=== PATIENT | female | born 1990 | race African-American/Black ===

== ENCOUNTER 2020-10-09 06:15 | Inpatient (IN) | payer OTHER, SELFPAY ==
[2020-10-09] VITALS (78 sets, daily range): BP systolic 106–166; BP diastolic 39–111; PULSE 74–147; RESP 14; TEMP 36.3–36.8; O2SAT 95–100; BMI 35.7
--- NOTE | 2020-10-09 06:15 | LDADM ---
This patient, Gaby Palomares, was admitted to Labor/Delivery/Recovery 107 on 10/09/20 at 06:15. Plans for labor, pain management and were discussed with patient. Patient/family oriented to hospital policies and general routines including ID bracelet, bed and alarms, visiting hours, pain management, procedures, bathroom and other care routines, personal items, smoking policy, room service/diet and guest tray routines, infant security routines, and visiting hours. Patient/Family are encouraged to report perceived risks to care and to ask questions if they do not understand what they are told or what they should do. See OBIX for further documentation.
--- NOTE | 2020-10-09 07:10 | WPDANESEPP ---
Anes - Eval Pre Procedure Procedure: labor epidural Date/Time: 10/09/20 07:10 Surgeon: nico Pre Op Diagnosis: Induction of Labor Patient Data Age: 29 Gender: F Height: 1.61 m Weight: 93 kg Last Vital Signs Pulse 119 H 10/09/20 07:01 BP 123/87 10/09/20 07:01 Allergies Allergy/AdvReac Type Severity Reaction Status Date / Time No Known Allergies Allergy Verified 09/22/20 15:16 Home Medications Medication Instructions Recorded Confirmed Type PNV cmb#95-ferrous fumarate-FA 1 tablet PO DAILY 09/22/20 09/22/20 History [] ferrous sulfate [Iron (ferrous 325 mg PO DAILY 09/22/20 09/22/20 History sulfate)] Patient hx anesthesia problems: none Family hx anesthesia problems: none PMFSH Family History Family History (Updated 09/22/20 @ 15:13 by Ross Garcia RN) Mother Hypertension Social History Social History Smoking status: Never smoker Substance use: never Gender identity (if verbalized by the patient): Female Spiritual care concerns: No Exam Day of Procedure 10/09/20 07:10
[2020-10-09 07:20] LABS: Basophils Percent Auto 0.2 % (0.2-1.2); Eosinophils Percent Auto 0.6 % (0-4.4); Hematocrit 35.9 % (37.0-47.0); Hemoglobin 11.8 g/dL (12.0-15.0); Immature Granulocyte Absolute 0.01 K/mm3 (0.00-0.031); Immature Granulocyte Percent A 0.2 % (0-0.5); Lymphocytes Absolute Auto 1.92 K/mm3 (0.9-3.2); Lymphocytes Percent Auto 31.1 % (18.3-44.2); Mean Corpuscular HGB Conc 32.9 g/dl (32-36); Mean Corpuscular Hemoglobin 32.2 pg (26-34); Mean Corpuscular Volume 97.8 fl (80-100); Mean Platelet Volume 10.4 fl (7.4-10.4); Monocytes Absolute Auto 0.4 K/mm3 (0.1-0.6); Neutrophils Absolute Auto 3.8 K/mm3 (1.3-6.7); Neutrophils Percent Auto 60.9 % (45.5-73.1); Platelet Count Result 206 k/mm3 (150-375); Red Blood Count 3.67 M/mm3 (4.2-5.4); Red Cell Distribution Width 13.5 % (11.5-14.5); White Blood Count 6.2 K/mm3 (4.5-10.0)
[2020-10-09] MEDS: OXYTOCIN 30 UNITS/NS 500 ML 30 UNITS/500 ML BAG IV CONT (07:26)
[2020-10-09] MEDS: LACTATED RINGERS 1,000 ML 125 ML IV CONT ×2 (07:26→11:04)
[2020-10-09 07:31] LABS: Albumin Level 3.3 g/dL (3.5-5.1); Alkaline Phosphatase 171 U/L (38-126); Anion Gap 12 mmol/L (8-16); Aspartate Amino Transferase 24 U/L (14-36); Bilirubin,Total 0.6 mg/dL (0.2-1.3); Blood Urea Nitrogen 4 mg/dL (7-17); Carbon Dioxide 16 mmol/L (22-30); Chloride 108 mmol/L (98-107); Estimated CRCL calculation 150 ml/min; Estimated Glomerular Filt Rate > 60; Glucose 167 mg/dL (65-105); Potassium 3.4 mmol/L (3.4-5.0); Sodium 136 mmol/L (137-145); Uric Acid 4.5 mg/dL (2.5-7.5)
[2020-10-09 07:40] LABS: Alanine Aminotransferase 18 U/L (4-35)
--- NOTE | 2020-10-09 08:07 | WPDOBADMIT ---
Obstetrics - Admit Note Admission Note: 29 y/o here for induction of labor for CHTN. Upon initial exam pt was leaking a small amount of fluid. AROM of forebag. record reviewed. No pertinent additions to the history and/or any subsequent changes in the physical findings that are not consistent with the expected course of the were found. Additions to the history and/or subsequent changes in the physical findings follow. None.
[2020-10-09] MEDS: AMPICILLIN 2 GM/NS 100 ML 2 GM/100 ML BAG IVPB (08:27)
[2020-10-09 09:17] LABS: Rapid Plasma Reagin Non-Reactive (NonReactive)
[2020-10-09] MEDS: AMPICILLIN 1 GM/NS 50 ML 1 GM/50 ML BAG IVPB (13:00)
--- NOTE | 2020-10-09 15:57 | P.PCNOB_ITS ---
OB - Delivery Note Procedure Delivery date: 10/09/20 events: Induced HTN (Chronic hypertension) Intrapartal events: None Induction method: per pitocin protocol Delivery monitor: external FHT and external uterine Route of delivery: Laceration Description: Perineal - 2nd Degree Delivery repair: vicryl Quantitative Blood Loss (ml): 202 Anesthesia type: Epidural Narrative: Cord gasses collected and handed off to staff. Mother and baby in stable condition. [place] Baby Date of : 10/09/20 Time of : 15:37 Weeks of gestation at delivery: 38 Weight (pounds): 7 Weight (ounces): 7 presentation: vertex position: Left Occiput Anterior Placenta delivery description: Spontaneous cord vessel description: Delayed Cord Clamping
[2020-10-09] MEDS: OXYTOCIN 30 UNITS/NS 500 ML 30 UNITS/500 ML BAG 125 UNITS IV CONT (16:06)
[2020-10-09] MEDS: IBUPROFEN 600 MG TABLET PO (18:18)
[2020-10-09] MEDS: BENZOCAINE 20% AER SPR (*SP) 56 GM CAN 1 SPRAY TOPICAL (18:19)
[2020-10-09] MEDS: WITCH HAZEL 40 PADS 1 PAD TOPICAL (18:19)
[2020-10-10 05:05] VITALS: BP 120/73; PULSE 88; RESP 14; TEMP 36.7; O2SAT 100
[2020-10-10 06:00] LABS: Hematocrit 30.1 % (37.0-47.0); Hemoglobin 9.9 g/dL (12.0-15.0)
--- NOTE | 2020-10-10 07:24 | WPDANLDPN2 ---
Anes-Prog Note L&D Date/Time: 10/10/20 07:24 Comfortable throughout: labor and delivery Neuraxial method: epidural Epidural/Spinal procedure site: clean & non-tender Neuro status: Neuro function grossly intact. Cardiovascular status: normal Respiratory status: normal Airway patency: baseline Mental status: baseline Post-Op hydration status: normal Vital Signs: Last Vital Signs Temp 36.7 C 10/10/20 05:05 Pulse 88 10/10/20 05:05 Resp 14 10/10/20 05:05 BP 120/73 10/10/20 05:05 Pulse Ox 100 10/10/20 05:05 Pain score (VAS): 05/07 I/O: Intake & Output 10/09/20 10/09/20 10/10/20 15:59 23:59 07:59 Intake Total 1150 800 Output Total 402 500 Balance 1150 398 -500 Post-procedural complaints: none Patient feedback: Patient satisfied with anesthetic care.
[2020-10-10] MEDS: LANOLIN (LANSINOH) 7.5 GM CREAM 1 APPLIC TOPICAL (07:29)
[2020-10-10] MEDS: WITCH HAZEL 40 PADS 1 PAD TOPICAL (07:29)
[2020-10-10] MEDS: BENZOCAINE 20% AER SPR (*SP) 56 GM CAN 1 SPRAY TOPICAL (07:29)
[2020-10-10] MEDS: DOCUSATE SODIUM 100 MG CAPSULE PO ×2 (07:30→16:21)
[2020-10-10] MEDS: POLYSACCHARIDE IRON COMPLEX 150 MG CAPSULE PO ×2 (07:30→16:21)
[2020-10-10] MEDS: IBUPROFEN 600 MG TABLET PO ×2 (07:31→16:21)
[2020-10-10] MEDS: MULTIVIT/MIN/PREN/FOL AC/IRON TABLET 1 TAB PO (07:32)
--- NOTE | 2020-10-10 07:38 | PM.OBPNVD ---
OB - PN: Subj Subjective Date/time seen: 10/10/20 07:38 Patient comments: no complaints baby status: doing well OB - PN: Obj Data Labs CBC & Chem 7: 10/10/20 05:18 10/09/20 07:09 Labs: Laboratory Results - last 24 hr 10/09/20 10/09/20 10/09/20 07:06 07:07 07:09 Hgb Hct ALT 18 RPR Non-reactive Blood Type B Positive Antibody Screen Negative 10/10/20 05:18 Hgb 9.9 L Hct 30.1 L ALT RPR Blood Type Antibody Screen OB - PN A/P Plan day: 1 Plan: routine care Comments: Exam per Z. Due SNM. Time Spent With Patient Time: Total time spent is greater than 50% in coordination of care (as documented) at patient's floor/unit and/or counseling patient: Time with patient: less than 15 minutes Review of Systems Review of Systems: All systems reviewed & are unremarkable except as noted in HPI and below Exam Narrative: Exam Narrative: Fundus firm and vaginal flow controlled. No lower ext redness, warmth, or edema. Negative homans. Denies h/a, v/d or e/p. Reflexes normal. Const: General: comfortable Chest: Breast/axilla inspection: normal inspection of the breasts Resp: Effort & Inspection: normal respiratory effort Cardio: Rate: regular rate GI: GI Palp: Yes Soft to palpation Psych: Appearance: grossly normal Affect: normal affect Attitude: cooperative Thought content: Yes Normal thought content present Judgement: Good judgement present (Psych)
[2020-10-10 08:00] VITALS: BP 127/73; PULSE 93; RESP 18; TEMP 36.3; O2SAT 100
--- NOTE | 2020-10-10 08:45 | PC.NURSE ---
Consult with pt., mother states she put to breast for first feeding and then supplemented. Mother states she plans to do both. Infant is now under bili lights and is only bottle feeding. Discussed stimulation and supply, offered to assist mother with pumping if she wishes. Mother states she has her own pump and will call out when ready.
[2020-10-10 11:32] VITALS: BP 114/78; PULSE 80; RESP 18; TEMP 36.4
--- NOTE | 2020-10-10 12:30 | PC.NURSE ---
Breast pump provided due to mother's wishes. Instructions given on breast pump care and usage, pumping schedule, nipple care, and collection and storage of breast milk. Encouraged [id number], breast massage and manual expression to stimulate supply. Assessed patient for correct flange size, placement and draw. Patient verbalizes and demonstrates understanding of instructions.
[2020-10-10 16:00] VITALS: BP 124/74; PULSE 86; RESP 20; TEMP 37
[2020-10-10 19:45] VITALS: BP 126/85; PULSE 104; RESP 20; TEMP 36.7
[2020-10-10 23:22] VITALS: BP 123/75; PULSE 105; RESP 16; TEMP 36.7
[2020-10-11 04:00] VITALS: BP 129/81; PULSE 98; RESP 16; TEMP 36.9
[2020-10-11] MEDS: IBUPROFEN 600 MG TABLET PO (06:04)
[2020-10-11] MEDS: WITCH HAZEL 40 PADS 1 PAD TOPICAL (07:22)
[2020-10-11] MEDS: DOCUSATE SODIUM 100 MG CAPSULE PO (07:22)
[2020-10-11] MEDS: BENZOCAINE 20% AER SPR (*SP) 56 GM CAN 1 SPRAY TOPICAL (07:22)
[2020-10-11] MEDS: MULTIVIT/MIN/PREN/FOL AC/IRON TABLET 1 TAB PO (07:22)
[2020-10-11] MEDS: POLYSACCHARIDE IRON COMPLEX 150 MG CAPSULE PO (07:22)
--- NOTE | 2020-10-11 07:23 | PM.OBPNVD ---
OB - PN: Subj Subjective Date/time seen: 10/11/20 07:23 Patient comments: no complaints baby status: doing well OB - PN: Obj Data Labs CBC & Chem 7: 10/10/20 05:18 10/09/20 07:09 OB - PN A/P Plan day: 2 Plan: routine care and discharge home Time Spent With Patient Time: Total time spent is greater than 50% in coordination of care (as documented) at patient's floor/unit and/or counseling patient: Review of Systems Review of Systems: All systems reviewed & are unremarkable except as noted in HPI and below Exam Const: General: cooperative Nutritional Appearance: average body habitus Orientation/consciousness: patient oriented x3 Psych: Attitude: cooperative Thought process: Normal thought process present Thought content: Yes Normal thought content present Judgement: Good judgement present (Psych)
--- NOTE | 2020-10-11 07:24 | PM.OBDSVD ---
DS: Admitting Diagnosis Admitting Diagnosis Admitting Diagnosis: IOL OB - DS: Summary OB Procedures : None OB Procedures Intrapartum: Spontaneous Vag Delivery OB Procedures: : None Time Spent with Patient Time attestation: Total time spent providing and/or coordinating discharge services: DS: Data Data Completed and Pending Pending studies at discharge: Pending at discharge 10/09/20 15:44 Surgical [PTH] Routine Discharge Plan Discharge Attending physician on discharge: Sylwia Clark Discharging Clinician: Almaz Plunkett Patient Disposition: Home, Self-Care Activity: pelvic rest Diet: regular Patient Instructions: Antibiotic Form Stand Alone Forms: General Discharge Information Follow-up/Referrals: Shauna Scott CNM [Certified Nurse Commercial Credit Specialist] - 4 Weeks Discharge Medications: Continued ferrous sulfate [Iron (ferrous sulfate)] 325 mg (65 mg iron) Tablet 325 mg PO DAILY RF: 0 PNV cmb#95-ferrous fumarate-FA [] 28 mg iron- 800 mcg Tablet 1 tablet PO DAILY RF: 0 Date of admission: 10/09/20 06:15 Primary Care Provider: PHYSICIAN,MAKING LINE WORKER Admitting Provider: Sylwia Clark Attending physician on admission: Sylwia Clark Condition: Stable
[2020-10-11 08:00] VITALS: BP 131/85; PULSE 95; RESP 18; TEMP 36.6
--- NOTE | 2020-10-11 12:15 | PC.NURSE ---
Self care and infant care discharge instructions given including follow up vistit date and time. MOther verbalized understanding. No questions or concerns voiced. Very pleasant and cooperative. FOB at side.
--- NOTE | 2020-10-11 12:27 | PC.NURSE ---
Consult with pt., mother states she will continue to pump and offer any EBM to as part of feeding. Stressed the importance of regular stimulation for increased stimulation of milk supply. Mother has her own Medela double electric pump and is pumping without difficulties and/or discomfort. Reviewed breast pump care and usage, pumping schedule, nipple care, and collection and storage of breast milk. Encouraged [id number], breast massage and manual expression to stimulate supply. Patient verbalizes and demonstrates understanding of instructions. Mother is feeding as required and waking to feed if needed. is currently meeting outcomes for weight, output, jaundice and feeding frequencies. Mother states she feels confident to continue pumping and bottle feeding at home. Reviewed transition to breast milk, signs of adequate intake, and engorgement/relief. Instructed to call ICP if intake/output less than required. Reviewed regular medications mother is taking. Information provided per Edie. Reviewed community resources on the [facility] website and in the Mom/Baby guide. Information on outpatient services provided. Mother has no further questions at this time.
[2020-10-11] MEDS: TETANUS,DIPHTHERIA,AC PERTUSSIS ADULT (0.5 ML) BOOSTRIX IM (13:16)
[2020-10-12 11:43] VITALS: BP 137/90; PULSE 95; RESP 20; TEMP 36.9; O2SAT 100
== END 2020-10-11 13:32 | disposition home or self-care (01) | DRG 807 ==
LOC: ANHLDR 06:26 → ANHOB2 21:27
PROVIDERS: Advanced Practice Midwife; Admitting Provider Obstetrics & Gynecology; Visit Provider Obstetrics & Gynecology
DX: O10.92 Unspecified pre-existing hypertension complicating childbirth (principal); Z37.0 Single live birth; O70.1 Second degree perineal laceration during delivery; O43.123 Velamentous insertion of umbilical cord, third trimester; Z3A.38 38 weeks gestation of pregnancy
CPT/HCPCS: 36415; 80053; 84112; 84550; 85014; 85018; 85025; 86592; 86850; 86900; 86901; 88307; 90715; A9270; J0290; J2590; J2795; J7120